=== PATIENT | male | born 1985 | race American Indian/Alaskan Native ===

== ENCOUNTER 2019-03-11 23:04 | Emergency (ER) | payer MEDICARE ==
--- NOTE | 2019-03-12 00:12 | Emergency Department Report ---
ED Medical Clearance HPI - General Chief complaint: Medical Clearance Stated complaint: MEDICAL CLEARANCE Time Seen by Provider: 03/11/19 23:46 Source: patient Mode of arrival: Ambulatory - History of Present Illness Initial comments: Patient is a 33-year-old male who presents to the emergency room for medical clearance for [facility]. Patient denies any symptoms at this time. He states he just feels like he is "judged by people and has had increased stress in his life." He denies any SI, HI, auditory or visual hallucinations. He states he has a past medical history of anxiety, depression, schizophrenia, bipolar. He reports he has taken his medications. He endorses tobacco use. He states he has not had alcohol in 20 days. He denies any drug use. He states he also has a past medical history of high blood pressure. Allergies/Adverse reactions: Allergies Allergy/AdvReac Type Severity Reaction Status Date / Time pineapple Allergy Itching Verified 03/11/19 23:18 shrimp Allergy Itching Verified 03/11/19 23:18 ED Review of Systems ROS: Stated complaint: MEDICAL CLEARANCE Other details as noted in HPI Comment: All other systems reviewed and negative ED Past Medical Hx - Past Medical History Previous Medical History?: Yes Hx Hypertension: Yes (not on medication) Hx Psychiatric Treatment: Yes (bipolar, schizophenia) - Surgical History Past Surgical History?: No - Social History Smoking Status: Current Every Day Smoker Substance Use Type: None ED Physical Exam - General Limitations: No Limitations General appearance: alert, in no apparent distress - Head Head exam: Present: atraumatic, normocephalic - Eye Eye exam: Present: normal appearance, PERRL - ENT ENT exam: Present: mucous membranes moist - Respiratory Respiratory exam: Present: normal lung sounds bilaterally. Absent: respiratory distress, wheezes, rales, rhonchi, stridor, chest wall tenderness, accessory muscle use, decreased breath sounds, prolonged expiratory - Cardiovascular Cardiovascular Exam: Present: regular rate, normal rhythm, normal heart sounds. Absent: systolic murmur, diastolic murmur, rubs, gallop - Neurological Exam Neurological exam: Present: alert, oriented X3 - Psychiatric Psychiatric exam: Present: normal affect, normal mood - Skin Skin exam: Present: warm, dry, intact ED Course Vital Signs 03/11/19 03/12/19 23:13 02:20 Temperature 98.3 F Pulse Rate 95 H 86 Respiratory 16 18 Rate Blood Pressure 143/99 Blood Pressure 124/85 [Right] O2 Sat by Pulse 97 99 Oximetry ED Medical Decision Making - Lab Data Result diagrams: 03/11/19 23:57 03/11/19 23:57 - Medical Decision Making Patient is a 33-year-old male who presents to the emergency room for medical clearance for [facility]. Patient denies any symptoms at this time. He states he just feels like he is "judged by people and has had increased stress in his life." He denies any SI, HI, auditory or visual hallucinations. He states he has a past medical history of anxiety, depression, schizophrenia, bipolar. He reports he has taken his medications. He endorses tobacco use. He states he has not had alcohol in 20 days. He denies any drug use. He states he also has a past medical history of high blood pressure. VSS. labs WNL. UDS is negative. UA shows WBCs and leukocyte esterase. pt denies any dysuria, urinary frequency, hematuria, or penile discharge. treated in the ED with ceftriaxone and azithromycin. advised pt to please drink plenty of water. Follow up with a primary care doctor the next 2-3 days. Abstain from sexual intercourse for the next 10 days. if Concerned for any STDs please be seen by the health department or primary care doctor. return to the emergency room for any new or worsening symptoms. have any partner tested and treated as well. pt is medically cleared for [facility]. ED Disposition Clinical Impression: Medical clearance for psychiatric admission UTI (urinary tract infection) Qualifiers: Urinary tract infection type: acute cystitis Hematuria presence: without hematuria Qualified Code(s): N30.00 - Acute cystitis without hematuria Disposition: TO HOME OR SELFCARE Is pt being admited?: No Does the pt Need Aspirin: No Condition: Stable Instructions: Urinary Tract Infection in Men (ED), Medical Clearance for Psychiatric Care (ED) Additional Instructions: Please drink plenty of water. Follow up with a primary care doctor the next 2-3 days. Abstain from sexual intercourse for the next 10 days. if Concerned for any STDs please be seen by the health department or primary care doctor. return to the emergency room for any new or worsening symptoms. have any partner tested and treated as well. Referrals: [facility] [Provider Group] - 2-3 Days [facility] [Outside] - 2-3 Days Time of Disposition: 02:05 Print Language: BOLIVIAN
[2019-03-12 00:14] LABS: Bilirubin,Urine NEG (Negative); Blood,Urine MOD (Negative); Color,Urine Straw (Yellow); Hyaline Casts,Urine 1 /LPF; Protein,Urine <15 mg/dL mg/dL (Negative); Urobilinogen,Urine < 2.0 mg/dL (<2.0)
[2019-03-12 00:14] LABS: Basophils % (Auto) 0.3 % (0.0-1.8); Eosinophils # (Auto) 0.1 K/mm3 (0.0-0.4); Eosinophils % (Auto) 1.4 % (0.0-4.3); Hematocrit 40.6 % (35.5-45.6); Hemoglobin 14.1 gm/dl (11.8-15.2); Lymphocytes # (Auto) 2.5 K/mm3 (1.2-5.4); Lymphocytes % (Auto) 24.9 % (13.4-35.0); Mean Corpuscular HGB Conc 35 % (32-34); Mean Corpuscular Volume 81 fl (84-94); Monocytes # (Auto) 0.7 K/mm3 (0.0-0.8); Monocytes % (Auto) 6.8 % (0.0-7.3); Platelet Count 185 K/mm3 (140-440); Red Blood Count 5.04 M/mm3 (3.65-5.03)
[2019-03-12 00:17] LABS: Amphetamine Screen,Urine PRESUMPTIVE NEGATIVE; Benzodiazepines Screen,Urine PRESUMPTIVE NEGATIVE; Cannabinoid Screen,Urine PRESUMPTIVE NEGATIVE; Cocaine Screen,Urine PRESUMPTIVE NEGATIVE; Methadone Screen,Urine PRESUMPTIVE NEGATIVE; Opiate Screen,Urine PRESUMPTIVE NEGATIVE
[2019-03-12 00:36] LABS: Alanine Aminotransferase 16 units/L (7-56); Albumin 5.1 g/dL (3.9-5); BUN/Creatinine Ratio 13; Blood Urea Nitrogen 15 mg/dL (9-20); Calcium 9.9 mg/dL (8.4-10.2); Hemolysis Index 7
[2019-03-12] MEDS ORDERED: XYLOCAINE 1% MPF 5 mL INFILTRATI ONE (01:54)
[2019-03-12] MEDS ORDERED: ZITHROMAX PO ONE (01:54)
[2019-03-12] MEDS ORDERED: ROCEPHIN IM ONE (01:54)
[2019-03-12 02:32] VITALS: BP 124/85
== END 2019-03-12 02:20 | disposition home or self-care (01) ==
LOC: ED 23:04
DX: N30.00 Acute cystitis without hematuria (principal); F43.9 Reaction to severe stress, unspecified; I10 Essential (primary) hypertension; F25.0 Schizoaffective disorder, bipolar type; F31.9 Bipolar disorder, unspecified; F41.9 Anxiety disorder, unspecified; F32.9 Major depressive disorder, single episode, unspecified; F17.200 Nicotine dependence, unspecified, uncomplicated; Z91.013 Allergy to seafood; Z91.018 Allergy to other foods
CPT/HCPCS: 36415; 80053; 80307; 81001; 85025; 87086; 96372; 99283; G0480; J0696; 80320

== ENCOUNTER 2019-09-24 09:14 | Emergency (ER) | payer MEDICARE ==
[2019-09-24 09:28] VITALS: BP 155/84
[2019-09-24 09:48] LABS: Basophils % (Auto) 0.5 % (0.0-1.8); Eosinophils # (Auto) 0.1 K/mm3 (0.0-0.4); Eosinophils % (Auto) 1.7 % (0.0-4.3); Hematocrit 41.4 % (35.5-45.6); Hemoglobin 14.4 gm/dl (11.8-15.2); Lymphocytes # (Auto) 1.8 K/mm3 (1.2-5.4); Mean Corpuscular HGB Conc 35 % (32-34); Mean Corpuscular Volume 80 fl (84-94); Monocytes # (Auto) 0.5 K/mm3 (0.0-0.8); Monocytes % (Auto) 6.6 % (0.0-7.3); Platelet Count 167 K/mm3 (140-440); Red Blood Count 5.18 M/mm3 (3.65-5.03); Red Cell Distribution Width 15.2 % (13.2-15.2)
[2019-09-24 10:07] LABS: BUN/Creatinine Ratio 8; Blood Urea Nitrogen 9 mg/dL (9-20); Calcium 9.3 mg/dL (8.4-10.2); Hemolysis Index 4
[2019-09-24 12:53] LABS: Bilirubin,Urine NEG (Negative); Blood,Urine SM (Negative); Color,Urine Yellow (Yellow); Mucus,Urine FEW /HPF; Protein,Urine <15 mg/dL mg/dL (Negative); Urobilinogen,Urine < 2.0 mg/dL (<2.0)
[2019-09-24 12:56] LABS: Amphetamine Screen,Urine PRESUMPTIVE NEGATIVE; Benzodiazepines Screen,Urine PRESUMPTIVE NEGATIVE; Cannabinoid Screen,Urine PRESUMPTIVE NEGATIVE; Cocaine Screen,Urine PRESUMPTIVE NEGATIVE; Methadone Screen,Urine PRESUMPTIVE NEGATIVE; Opiate Screen,Urine PRESUMPTIVE NEGATIVE
== END 2019-09-24 11:00 | disposition left against medical advice (07) ==
LOC: ED 09:14
DX: F22 Delusional disorders (principal); Z53.21 Procedure and treatment not carried out due to patient leaving prior to being seen by health care provider
CPT/HCPCS: 36415; 80048; 80307; 80320; 81001; 85025; G0480